=== PATIENT | male | born 1965 | race Caucasian/White ===

== ENCOUNTER 2024-05-02 18:28 | Emergency (ER) | payer MEDICAID, SELFPAY ==
[2024-05-02 18:36] VITALS: BP 134/88; PULSE 84; O2SAT 98
[2024-05-02 18:51] VITALS: BP 141/90; PULSE 77; RESP 16; TEMP 36.4; O2SAT 98; BMI 24.2
[2024-05-02 19:55] VITALS: BP 152/89; PULSE 76; RESP 16; TEMP 36.4; O2SAT 99
[2024-05-02 21:30] LABS: Appearance Urine Clear; Color Urine Yellow; Glucose Urine UA Negative (Negative); Leukocyte Esterase Urine Negative (Negative); Nitrite Urine Negative (Negative); PH 5.5 (5.0-9.0); Urine Blood Negative (Negative); Urine Ketones Negative (Negative); Urine Protein Negative (Neg-Trace)
[2024-05-02 21:58] VITALS: BP 156/88; PULSE 78; RESP 16; TEMP 36.8; O2SAT 98
--- NOTE | 2024-05-02 21:58 | ED_ITS ---
HPI - General Adult General Chief complaint: Urogenital-Female Stated complaint: From [place], penis pain, hx of cancer Time Seen by Provider: 05/02/24 21:41 Source: patient and EMS Mode of arrival: EMS Limitations: no limitations History of Present Illness ED Provider: Dr. Alana Jamil HPI narrative: Patient comes to the emergency room complaining of bleeding from biopsy site in the glans of the penis which was done 1 week ago. Patient states that today he was taking a shower in the morning, noticed there was a little bit of bleeding, became very anxious and decided to come to the hospital to get checked out. 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 At this time, patient states that the surgical site feels uncomfortable. Otherwise no significant pain. No bleeding at this time Related Data Allergies Allergy/AdvReac Type Severity Reaction Status Date / Time No Known Allergies Allergy Verified 05/02/24 18:54 Review of Systems Review of Systems: Constitutional : No Weight loss, No Fever, No Chills, No Night Sweats, No Fatigue, No Malaise ENT/Mouth : No Hearing loss, No Ear Pain, No Nasal Congestion, No Sinus Pain, No Hoarseness, No sore throat, No Rhinorrhea, No Swallowing Difficulty Eyes: No Eye Pain, No Swelling, No Redness, No Foreign Body, No Discharge, No Vision Changes Cardiovascular : No Chest Pain, No SOB, No Dyspnea on Exertion, No Orthopnea, No Edema, No Palpitations Respiratory : No Cough, No Sputum, No Wheezing, No Smoke Exposure, No Dyspnea Gastrointestinal : No Nausea, No Vomiting, No Diarrhea, No Constipation, No abdo minnie Pain, No Hematochezia, No Melena Genitourinary : no irregular bleeding, No Dysuria, No Urinary Frequency, No Hematuria, No Urinary Incontinence, No Urgency, No Flank Pain, No Urinary Flow Changes, No Hesitancy Musculoskeletal : No joint pain, No Myalgias, No Joint Swelling Skin : Complaining of bleeding from biopsy site Neuro : No Weakness, No Numbness, No Paresthesias, No Loss of Consciousness, No Dizziness, No Headache Psych : No Anxiety/Panic, No Depression, No SI/HI/AH/VH, No Social Issues, Heme/Lymph: No Bruising, No Bleeding,No Lymphadenopathy Endocrine : No Polyuria, No Polydipsia, No Temperature Intolerance [facility] Social History Social History Advance Directives: No Advance Directives Information Provided: No Physical Exam ED Vital Signs: Vital Signs - 24 hr 05/02/24 18:51 05/02/24 19:55 Temperature 97.6 F 97.5 F Pulse Rate 77 76 Respiratory Rate 16 16 Blood Pressure 141/90 H 152/89 H Pulse Oximetry 98 99 Oxygen Delivery Method Room Air Room Air BMI result Body Mass Index 24.2 Const Other: Appearance: Alert. Oriented X3. No acute distress. Eyes: Pupils equal, round and reactive to light. ENT: Pharynx normal. Neck: Normal inspection. Neck supple. No lymph nodes noted. No crepitus CVS: Normal heart rate and rhythm. Pulses normal. Normal S1 and S2 Respiratory: No respiratory distress. Breath sounds normal. No Wheezing. No rales Abdomen: Soft and nontender. No rigidity. No distention. : There is a 2 mm healed eschar on the 06:00 o'clock location of the penis. There is no bleeding, the incision looks clean. Skin: Skin warm and dry. Normal skin color. Normal skin turgor. Extremities: No lower extremity edema. No Lacerations. No Rash Neuro: Oriented X 3. No motor deficit. No sensory deficit. Moving all extremities. No slurred speech. CN 2 through 12 grossly intact Psych: calm, cooperative, normal affect Medical Decision Making Medical Decision Making MDM Narrative: I discussed the physical exam with the patient, the incision looks clean, an eschar is present, no active bleeding, no signs of infection -patient very anxious, 1 mg of p.o. Ativan was given. =-patient ready for discharge Discharge Plan Discharge Clinical Impression: Skin eschar Patient Disposition: Xfer Other Transfer Details: [facility] Print Language: Turkish
[2024-05-02] MEDS: LORazepam 1 MG TABLET PO (22:01)
--- NOTE | 2024-05-02 22:19 | PC.NURSE ---
report given to patrick godoy
[2024-05-02 22:48] VITALS: BP 168/101; PULSE 73; RESP 16; TEMP 36.7; O2SAT 99
[2024-05-02 23:12] VITALS: BP 168/101; PULSE 73; RESP 16; TEMP 36.7; O2SAT 99
== END 2024-05-02 23:12 | disposition other institution (70) ==
PROVIDERS: Emergency Provider Emergency Medicine
DX: R23.4 Changes in skin texture (principal); N48.89 Other specified disorders of penis; F41.9 Anxiety disorder, unspecified; C62.90 Malignant neoplasm of unspecified testis, unspecified whether descended or undescended; C79.00 Secondary malignant neoplasm of unspecified kidney and renal pelvis
CPT/HCPCS: 81003; 99283

== ENCOUNTER 2024-05-03 22:57 | Emergency (ER) | payer MEDICAID, SELFPAY ==
--- NOTE | 2024-05-03 | ECG_ITS ---
Test Reason : CP Blood Pressure : / mmHG Vent. Rate : 070 BPM Atrial Rate : 070 BPM P-R Int : 138 ms QRS Dur : 100 ms QT Int : 410 ms P-R-T Axes : 038 065 056 degrees QTc Int : 442 ms Normal sinus rhythm Normal ECG No previous ECGs available Referred By: Generic ED Physician Electronically Signed By:ANGEL ERNST
[2024-05-03 23:12] VITALS: BP 146/99; PULSE 81; O2SAT 95
[2024-05-03 23:14] VITALS: BP 154/86; PULSE 75; RESP 15; TEMP 36.4; O2SAT 97; BMI 23.7
[2024-05-03 23:31] LABS: Appearance Urine Clear; Color Urine Yellow; Glucose Urine UA Negative (Negative); Leukocyte Esterase Urine Negative (Negative); Nitrite Urine Negative (Negative); Specific Gravity - Urine 1.015 (1.005-1.025); Urine Blood Negative (Negative); Urine Ketones Negative (Negative); Urine Protein Negative (Neg-Trace)
[2024-05-04] VITALS: BP 115/73; PULSE 66; RESP 12; TEMP 36.7; O2SAT 95
[2024-05-04 00:19] LABS: MANUAL DIFF FLAG NO
[2024-05-04 00:21] LABS: Basophils Percent Auto 0.5 % (0-2); Eosinophils Absolute Auto 0.3 X10*3/uL (0.0-0.4); Hematocrit 35.3 % (42.0-52.0); Hemoglobin 11.9 g/dl (14.0-18.0); Imm Gran Abs Auto 0.03 X10*3/uL (0.00-0.03); Imm Gran Pct Auto 0.4 % (0.0-0.4); Lymphocytes Absolute Auto 2.3 X10*3/uL (1.2-4.9); Lymphocytes Percent Auto 30.3 % (20-40); Mean Corpuscular HGB Conc 33.7 g/dl (31.0-36.0); Mean Corpuscular Hemoglobin 31.6 pg (27.0-33.0); Mean Corpuscular Volume 93.9 fL (80.0-98.0); Mean Platelet Volume 9.7 fL (9.4-12.4); Monocytes Absolute Auto 0.5 X10*3/uL (0.1-1.2); Monocytes Percent Auto 6.9 % (2-11); Neutrophils Absolute Auto 4.4 x10*3/uL (2.0-8.3); Neutrophils Percent Auto 57.9 % (45-73); Platelet Count 350 X10*3/uL (160-400); Red Blood Count 3.76 X10*6/uL (4.60-5.80); Red Cell Distribution Width 11.8 % (11.0-16.0); White Blood Count 7.5 X10*3/uL (4.8-10.8)
[2024-05-04 00:36] LABS: Alanine Aminotransferase 18 U/L (0-40); Albumin Level 3.5 g/dL (3.5-5.0); Alkaline Phosphatase 71 U/L (39-117); Anion Gap 12 (12-20); Aspartate Amino Transferase 22 U/L (5-37); Bilirubin Total 0.1 mg/dL (0.0-1.0); Blood Urea Nitrogen 17 mg/dL (9-16); Calcium 9.2 mg/dL (8.4-10.2); Carbon Dioxide 26 mmol/L (22-29); Chloride 109 mmol/L (96-108); Creatinine Clr Calc Pharmacy 107.1; Estimated Glomerular Filt Rate > 60; Glucose Random 100 mg/dL (60-115); Potassium 4.1 mmol/L (3.3-5.1); Sodium 143 mmol/L (135-145); Total Protein 6.6 g/dL (6.5-8.0)
[2024-05-04 00:45] LABS: Troponin-I High Sensitivity < 2.7 ng/L (<3.5-35.0)
--- NOTE | 2024-05-04 00:48 | ED.CHESTPAIN ---
HPI - Chest Pain General Chief Complaint: Chest Pain Stated Complaint: CHEST PAIN FROM [facility] Time Seen by Provider: 05/04/24 00:29 Source: patient and EMS Mode of arrival: EMS Limitations: no limitations History of Present Illness ED Provider: luciano HERNANDEZ narrative: Patient came by EMS from [facility] with history of renal and testicular cancer comes here for right-sided chest on arrival patient denied any complaint been sleeping since he arrived no shortness breath has stable vitals patient was seen here yesterday for increased anxiety Related Data Allergies Allergy/AdvReac Type Severity Reaction Status Date / Time No Known Allergies Allergy Verified 05/03/24 23:14 Review of Systems Review of Systems: Yes all other systems are reviewed and are negative PMFSH Social History Social History Advance Directives: No Advance Directives Information Provided: No Physical Exam Vital Signs: Vital Signs: Last Vital Signs Temp 98.0 F 05/04/24 00:00 Pulse 66 05/04/24 00:00 Resp 12 05/04/24 00:00 BP 115/73 05/04/24 00:00 Pulse Ox 95 05/04/24 00:00 O2 Del Method Room Air 05/04/24 00:00 BMI result Body Mass Index 23.7 Appearance: Sleeping No acute distress. Eyes: PERRLA, No Nystagmus ENT: Pharynx normal. Oral Mucosa moist Neck: Normal inspection. Neck supple. CVS: Normal heart rate and rhythm. Pulses normal. Respiratory: No respiratory distress. Equal air entry bilateral, no wheezing/rales/rhonchi Abdomen: Soft and nontender. Bowel sounds are present, no mass palpable, no CVA tenderness Skin: Skin warm and dry. Normal skin color. Normal skin turgor. Extremities: No lower extremity edema. No calf tenderness Neuro: Oriented X 3. No motor deficit. Medical Decision Making Medical Decision Making [facility] Narrative: Patient with recent diagnosis of renal and testicular cancer with increased anxiety comes here for nonspecific complaints patient has been sleeping since arrived labs are stable will discharge patient home on oxycodone for increased pain Lab Data [facility] Lab Attestation statement: I reviewed the patient's lab results. 05/03/24 23:58 05/03/24 23:58 Labs: Lab Results 05/03/24 05/03/24 Range/Units 23:25 23:58 WBC 7.5 (4.8-10.8) X10*3/uL RBC 3.76 L (4.60-5.80) X10*6/uL Hgb 11.9 L (14.0-18.0) g/dl Hct 35.3 L (42.0-52.0) % MCV 93.9 (80.0-98.0) fL MCH 31.6 (27.0-33.0) pg MCHC 33.7 (31.0-36.0) g/dl RDW 11.8 (11.0-16.0) % Plt Count 350 (160-400) X10*3/uL MPV 9.7 (9.4-12.4) fL Immature Gran % (Auto) 0.4 (0.0-0.4) % Neut % (Auto) 57.9 (45-73) % Lymph % (Auto) 30.3 (20-40) % [place] % (Auto) 6.9 (2-11) % Eos % (Auto) 4.0 (0-4) % Baso % (Auto) 0.5 (0-2) % Lymph # (Auto) 2.3 (1.2-4.9) X10*3/uL [place] # (Auto) 0.5 (0.1-1.2) X10*3/uL Eos # (Auto) 0.3 (0.0-0.4) X10*3/uL Baso # (Auto) 0.0 (0.0-0.2) X10*3/uL Abs Immat Gran (auto) 0.03 (0.00-0.03) X10*3/uL Absolute Neuts (auto) 4.4 (2.0-8.3) x10*3/uL Absolute Nucleated RBC 0.000 (0.0-0.012) X10*3/uL Nucleated RBC % (auto) 0.0 (0.0-0.2) /100WBC Sodium 143 (135-145) mmol/L Potassium 4.1 (3.3-5.1) mmol/L Chloride 109 H (96-108) mmol/L Carbon Dioxide 26 (22-29) mmol/L Anion Gap 12 (12-20) BUN 17 H (9-16) mg/dL Creatinine 0.82 (0.5-1.4) mg/dL Estim Creat Clear Calc 107.1 Estimated GFR > 60 Random Glucose 100 (60-115) mg/dL Calcium 9.2 (8.4-10.2) mg/dL Total Bilirubin 0.1 (0.0-1.0) mg/dL AST 22 (5-37) U/L ALT 18 (0-40) U/L Alkaline Phosphatase 71 (39-117) U/L Troponin I High Sens < 2.7 (<3.5-35.0) ng/L Total Protein 6.6 (6.5-8.0) g/dL Albumin 3.5 (3.5-5.0) g/dL Urine Color Yellow Urine Appearance Clear Urine pH 6.0 (5.0-9.0) Ur Specific [place] 1.015 (1.005-1.025) Urine Protein Negative (Neg-Trace) mg/dL Urine Glucose (UA) Negative (Negative) mg/dL Urine Ketones Negative (Negative) mg/dL Urine Blood Negative (Negative) Urine Nitrite Negative (Negative) Ur Leukocyte Esterase Negative (Negative) Independent Interpretation I performed an independent interpretation of an: EKG Interpretation: Normal sinus rhythm heart rate 70 beats per minute normal interval normal axis impression normal EKG Discharge Plan Discharge Clinical Impression: Atypical chest pain Patient Disposition: er [facility] Transfer Details: Patient has atypical chest pain denied any chest pain on arrival labs are normal EKG normal follow up with PCP Instructions: Chest Pain (ED) Additional Instructions: Follow up with your PCP Print Language: Georgian
[2024-05-04 05:36] VITALS: BP 130/82; PULSE 63; RESP 10; TEMP 36.9; O2SAT 97
[2024-05-04 05:59] VITALS: BP 130/82; PULSE 63; RESP 10; TEMP 36.9; O2SAT 97
== END 2024-05-04 06:00 | disposition skilled nursing facility (03) ==
PROVIDERS: Emergency Provider Internal Medicine
DX: R07.89 Other chest pain (principal); F41.9 Anxiety disorder, unspecified; C64.9 Malignant neoplasm of unspecified kidney, except renal pelvis; C79.82 Secondary malignant neoplasm of genital organs
CPT/HCPCS: 36415; 80053; 81003; 84484; 85025; 93005; 99283; 99284